=== PATIENT | female | born 1940 | race Caucasian/White ===

== ENCOUNTER → 2023-05-19 11:28 | Outpatient (REF) | payer MEDICARE, SELFPAY ==
[2023-05-19 12:14] LABS: Uric Acid 3.5 mg/dl (2.5-6.2)
[2023-05-21 15:54] LABS: Rheumatoid Agglutinin Less Than 10 IU (<10 IU)
== END ==
LOC: OLABPG 11:28
PROVIDERS: ATTENDING PHYSICIAN Internal Medicine
DX: F03.90 Unspecified dementia, unspecified severity, without behavioral disturbance, psychotic disturbance, mood disturbance, and anxiety (principal)
CPT/HCPCS: 36415; 84550; 86430